=== PATIENT | male | born 1935 ===

== ENCOUNTER 2019-08-24 14:13 | Inpatient (IN) | payer MEDICARE, OTHER ==
[2019-08-24 18:32] VITALS: BP 101/61
[2019-08-24] MEDS ORDERED: Non-Formulary Item 1 EA (Temazepam [Restoril] 30 MG) PO PRN (19:41)
[2019-08-24] MEDS ORDERED: GLUCAGON HCl 1 MG KIT IM PRN (19:44)
[2019-08-24] MEDS ORDERED: Non-Formulary Item 1 EA (Cetirizine Hcl [Cetirizine Hcl] 10 MG) PO SCH (21:00)
[2019-08-24] MEDS: Insulin Glargine 100 units/ml 10ml Vial SUBQ SCH (21:01)
[2019-08-24] MEDS: INSULIN LISPRO SLIDING SCALE 100 UNITS/ML UNIT SUBQ SCH (21:01)
--- NOTE | 2019-08-24 21:33 | History & Physical ---
ADMIT DATE: 08/24/2019 PATIENT IDENTIFICATION: An 83-year-old male. REQUESTING PHYSICIAN: Dr. Cardenas. CHIEF COMPLAINT: "I need my insulin." HISTORY OF PRESENT ILLNESS: An 83-year-old male who was transferred from [place] from [place] to [facility] for psychiatric treatment after the patient presented to [facility] Emergency Room for danger to himself. The patient was also noted to have pneumonia, for that he got treated. The patient has a complex medical history and I have been asked to manage the patient's medical problem. PAST MEDICAL HISTORY: Remarkable for: 1. Diabetes. 2. Hypertension. 3. Chronic atrial fibrillation. 4. Degenerative joint disease. 5. Hypothyroidism. 6. Benign prostatic hypertrophy. 7. Glaucoma. 8. Gastroesophageal reflux disease. 9. Gout. 10. History of pacemaker placement. 11. History of long-term anticoagulation therapy. PAST SURGICAL HISTORY: Remarkable for pacemaker placement along with total knee replacement. MEDICATIONS: At the time of transfer has been reviewed and reconciled appropriately. ALLERGIES: The patient is not allergic to medications. SOCIAL HISTORY: He lives in [place]. He has no history of smoking cigarette, alcohol, or drug use. FAMILY MEDICAL HISTORY: Remarkable for diabetes, hypertension. REVIEW OF SYSTEMS: The patient stated that he cannot raise his left upper extremity above his head. Otherwise, denies any headache, blurred vision, double vision, dysphagia, odynophagia, runny nose, stuffy nose, fever, chills, cough, chest pain, shortness of breath, palpitation, dizziness, nausea, vomiting, diarrhea, dysuria, hematuria, hematochezia, melena. No history of any seizure or syncopal episode. PHYSICAL EXAMINATION: GENERAL: The patient is alert, awake, oriented, lying in the bed without any acute distress. VITAL SIGNS: Temperature 98.4, pulse 66, respiratory rate 18, blood pressure 101/61. HEENT: Normocephalic, atraumatic. Extraocular muscles are intact. Tongue was pink and coated. Poor dentition noted. No oral lesion, no exudate. No sinus tenderness. NECK: Supple. No JVD, no hepatojugular reflux, thyromegaly or carotid bruit. HEART: Both heart sounds are irregularly irregular. Grade 3/6 systolic murmur noted. CHEST AND LUNGS: Equal in expansion with no expiratory wheezing. Palpable pacemaker in the left subclavian area noted. ABDOMEN: Soft, no guarding, no rigidity. Bowel sounds present. No palpable mass. EXTREMITIES: No edema, no cyanosis. Peripheral pulses are +1. No calf tenderness noted. Well-healed surgical scar for total knee replacement noted. BACK: No kyphosis, no scoliosis, no costovertebral tenderness, no spinal tenderness noted. NEUROLOGIC: 1. The patient is alert, awake and oriented to time, place, person. Cranial #2, 4, 6, able to move his eyes upward, downward, medial, laterally. Cranial #7, no facial asymmetry. Cranial #8, able to hear loud words clearly. Cranial #9, no gag reflex present. Cranial #10, able to say Ah. Cranial #11, able to shrug shoulder bilaterally equally. Cranial #12, tongue is in midline. Power in upper and lower extremities 5+ and sensation to touch intact. Babinski's in both toes are going down. No cerebral sign. AVAILABLE DIAGNOSTIC DATA: Performed at [facility] in [place] has been reviewed. Total time reviewing the records approximately 15 minutes. CLINICAL IMPRESSION: 1. Insulin requiring diabetes. 2. Hypertension. 3. Hyperlipidemia. 4. Obstructive sleep apnea. 5. Coronary artery disease, status post angioplasty and stent placement. 6. Gout. 7. Degenerative joint disease. 8. Gastroesophageal reflux disease. 9. Benign prostatic hypertrophy. 10. Status post pacemaker placement for sick sinus syndrome. 11. Pneumonia, currently on antibiotic. 12. Obesity. 13. Fibromyalgia. 14. Long-term anticoagulation therapy. 15. High risk for fall. 16. Psychiatric disorder. PLAN: 1. Psychiatric disorder. Evaluation and management deferred. 2. Diabetes management with basal bolus insulin therapy. 3. Continue Synthroid for hypothyroidism. 4. Flomax for benign prostatic hypertrophy. 5. Proton pump inhibitor for gastroesophageal reflux disease. 6. Continue his glaucoma drop as prescribed by expert medical writer. 7. Monitor the blood pressure and resume antihypertensive medication. 8. Continue Xarelto with rate control for atrial fibrillation. 9. Continue to provide nutritional support, fall precautions, general nursing care. 10. As the patient is taking diuretics, we will continue the diuretics with Lasix and potassium with metolazone and we will get the followup lab as well. We will continue to follow this patient during his stay in the hospital. I sincerely thank you, Dr. Cardenas for giving me the opportunity to participate in patient of yours. JOB# [id number]
[2019-08-25] MEDS: Levothyroxine 0.1 Mg Tab PO SCH (06:55)
[2019-08-25] MEDS: INSULIN LISPRO SLIDING SCALE 100 UNITS/ML UNIT SUBQ SCH ×4 (07:02→21:38)
[2019-08-25] MEDS: Calcium Carb/Vit D 500 mg/200 U Tab PO SCH (08:33)
[2019-08-25] MEDS: Multivitamin Tab PO SCH (08:40)
[2019-08-25] MEDS ORDERED: MULTIVITAMIN PO SCH (09:00)
[2019-08-25] MEDS ORDERED: Metolazone 5 MG TAB PO SCH (09:00)
[2019-08-25] MEDS ORDERED: PHENTERMINE HCL 37.5 MG PO SCH (09:00)
[2019-08-25] MEDS ORDERED: ALFUZOSIN HCL 10 MG PO SCH (09:00)
[2019-08-25] MEDS ORDERED: CYCLOSPORINE OP SCH (09:00)
[2019-08-25] MEDS ORDERED: Potassium Chloride 20 mEq ER Tab PO SCH (09:00)
[2019-08-25] MEDS ORDERED: FEBUXOSTAT 40 MG PO SCH (09:00)
--- NOTE | 2019-08-25 14:45 | Psychiatric Evaluation ---
DATE OF SERVICE: 08/24/2019 IDENTIFYING DATA: The patient is an 83-year-old male living with his family. Information obtained by directly interviewing the patient as well as reviewing the admission papers. JUSTIFICATION OF HOSPITALIZATION: The patient is admitted on 515 as a danger to self. CHIEF COMPLAINT: "I don't understand why they have to bring me in here." HISTORY OF PRESENT ILLNESS: This is the first psychiatric hospitalization to [facility] for this patient who is reported to have been holding a gun and pointing towards the son and the patient has been taken to the hospital where the patient was placed on 5150 and admitted over here for stabilization. During the evaluation, the patient has been upset and stating that he never tried to hurt anyone and he could not fair it out why he has to be brought over here. The patient is reported to be [place] vet. Sleep and appetite prior to the hospitalization are reported to be poor. The patient is reported to have been giving different versions of the account and the patient is going to be closely monitored at this time. PAST PSYCHIATRIC HISTORY: The patient denies any prior psychiatric hospitalizations. MEDICAL HISTORY: Physical examination is requested by Dr. Virk. SUBSTANCE ABUSE HISTORY: None. PHYSICAL OR SEXUAL ABUSE HISTORY: None. SOCIAL HISTORY: The patient is living with his family. MENTAL STATUS EXAMINATION: The patient is an 83-year-old male, wheelchair bound, superficially cooperative. Eye contact is poor. Mood is noted to be irritable. Affect is constricted. Coping skills are noted to be poor. The patient is getting easily frustrated. The patient is stating that the gun thing has happened a few days ago and he could not fair it out why they had to bring him in here. The patient is alert and awake and he is fully aware that he is in the hospital and his age and the patient is able to give his phone number to his . The patient is stating that he needs to be at home rather than being here. the patient's behavior is a clear danger to self and others and the patient is going to be closely monitored. DIAGNOSES: AXIS I: Dementia and behavioral change, secondary trait. AXIS I B: Unspecified psychosis. PLAN: To closely monitor the patient and start the patient on low dose of Risperdal and followup. Once stabilized, the patient is going to be discharged to [facility] to be followed up on an outpatient basis. JOB# [id number]
[2019-08-25] MEDS: Insulin Glargine 100 units/ml 10ml Vial SUBQ SCH (21:39)
[2019-08-26] MEDS: INSULIN LISPRO SLIDING SCALE 100 UNITS/ML UNIT SUBQ SCH ×4 (07:06→21:06)
[2019-08-26] MEDS: Levothyroxine 0.1 Mg Tab PO SCH (07:06)
[2019-08-26] MEDS: Calcium Carb/Vit D 500 mg/200 U Tab PO SCH (08:58)
[2019-08-26] MEDS: Multivitamin Tab PO SCH (08:58)
[2019-08-26] MEDS: Potassium Chloride 20 mEq ER Tab PO SCH ×2 (08:59→17:01)
[2019-08-26] MEDS: Insulin Glargine 100 units/ml 10ml Vial SUBQ SCH (21:07)
--- NOTE | 2019-08-27 01:27 | Progress Notes ---
DATE: 08/26/2019 PSYCHIATRIC PROGRESS NOTE SUBJECTIVE: Staff was spoken to. The patient is interviewed. Mood is noted to be irritable. Affect is constricted. The patient is stating that he never tried to hurt anyone and he could not figure it out how he ended up in here. The patient's has been spoken to and she has been mentioning that the patient has been having difficult time in coping. The patient is reported to have been demented and the problems have been getting worse lately and the patient's is very much worried about the safety of the family if the patient were to be discharged to home without stabilization. ASSESSMENT: The patient is still impulsive. PLAN: To continue the patient with the supportive therapy and followup. JOB# [id number]
[2019-08-27] MEDS: Levothyroxine 0.1 Mg Tab PO SCH (06:42)
[2019-08-27] MEDS: INSULIN LISPRO SLIDING SCALE 100 UNITS/ML UNIT SUBQ SCH ×4 (06:42→21:03)
[2019-08-27] MEDS: Potassium Chloride 20 mEq ER Tab PO SCH ×2 (08:33→16:49)
[2019-08-27] MEDS: Calcium Carb/Vit D 500 mg/200 U Tab PO SCH (08:35)
[2019-08-27] MEDS: Multivitamin Tab PO SCH (08:35)
[2019-08-27] MEDS: Insulin Glargine 100 units/ml 10ml Vial SUBQ SCH (21:04)
--- NOTE | 2019-08-27 22:56 | Consultation ---
DATE OF CONSULTATION: 08/27/2019 REFERRING PHYSICIAN: Nicolette Cardenas M.D. TYPE OF CONSULTATION: Psychology. HISTORY OF PRESENT ILLNESS: The patient is an 83-year-old male. The following is by review of the medical record as well as by the patient's self-report. According to record review, the patient is being admitted on a 5150 as a danger to self. The patient states that he does not know why he is being hospitalized. The patient is complaining of sores bilaterally on his lower legs and is requesting treatment. Nursing staff is informed. The record indicates that the patient was taken to the hospital near where he lives due to the patient being upset and apparently pointing a gun at his son. The patient denied pointing a gun at his son. He stated that he has never done something like that. He states that the only time he ever did that was during the [place]. The patient presents as somewhat confused and did not elaborate on his relationship with his son. The patient denied any suicidal ideation or homicidal ideation, plan or intention at the time of this interview. PAST MEDICAL HISTORY: Please see history and physical by Dr. Virk. PAST PSYCHIATRIC HISTORY: Records are unavailable. Details are unknown. There are no prior psychiatric hospitalizations according to record review or by the patient's self-report. SUBSTANCE ABUSE HISTORY: The patient denied any history of alcohol, tobacco, illicit or recreational drug use. BRIEF PSYCHOSOCIAL HISTORY: The patient states that he lives with his family. He states that he is and that he is a Christian. His 's name is Becca. The patient's son's name is Anand. The patient states that he is a [place] . The patient did not give any history about his education or occupation. The patient stated no history of physical abuse. The patient did not know whether there are any current legal problems. The patient did admit he has a gun and that he accused his son of taking something. He was not specific about the accusation and denied that he pointed the gun at his son. MENTAL STATUS EXAMINATION: The patient appears to be his stated age. The patient's attitude is affable and cooperative. Eye contact is fair to poor. Mood is mildly irritable. Speech is spontaneous. The patient denied any depression. The patient states he does not know why he is being hospitalized. Affect is animated. Thought process shows to be focused on discharge. The patient's thought process also shows to be relevant and is responding reasonably to the clinical questions ; however, there is some confusion with respect to the events that brought him to the hospital and the incident concerning the 5150 admission. There also may be paranoid ideation. This needs further evaluation. The patient did go on to admit that he did have a gun, but never pointed it at anyone. The patient denied any hallucinations or delusions. The patient's behavior has been difficult to redirect at times and the patient is easily frustrated. Impulse control is poor and limited. Concentration is fair. Sensorium is alert and oriented to self and place. The patient was able to give his correct age and date of . Remote memory seems to be intact. Short term memory seems to be fair. The patient did not participate in the interpretation of proverbs. Insight is poor. Judgment is compromised. DIAGNOSTIC IMPRESSION: AXIS I: 1. Provisional diagnosis of dementia with behavioral disturbance. 2. Unspecified psychosis. AXIS II: Deferred. AXIS III: Please see H and P by Dr. Virk. PLAN: The patient has been seen by Dr. Cardenas for psychiatric evaluation and for the management of the patient's psychotropic medications. The patient was started on a low dose of Risperdal according to the attending psychiatrist. We will provide supportive psychotherapy to include reality orientation, differentiation and integration. We will provide de-escalation as well as limit setting including boundary awareness and definitions. We will provide coping strategies for phase of life issues. We will provide conflict resolution and problem solving along with brief solution focused therapy, which will include simple anger management skills to increase the patient's frustration tolerance and to improve his interaction with his son. We recommend the patient and his family consult with a psychologist on an outpatient basis or a family therapist to provide assistance with resolving the current family conflict. Thank you, Dr. Cardenas, for this consult and the opportunity to participate with you in this patient's care. JOB# [id number] ARJUN
--- NOTE | 2019-08-28 02:06 | Progress Notes ---
DATE: 08/27/2019 PSYCHIATRIC PROGRESS NOTE SUBJECTIVE: Staff was spoken to. The patient is interviewed. Mood is noted to be irritable. Affect is constricted. The patient's coping skills are noted to be extremely poor. Insight and judgment are also noted to be limited. No side effects to the medications are noted. The patient has been trying to get into the groups. The patient is still paranoid. The patient is stating that he could not figure it out that why he has to be here and then they are misconstruing his intent of holding the gun. ASSESSMENT: The patient is still paranoid and demented. PLAN: To continue the patient with the current medications and followup. JOB# [id number]
[2019-08-28] MEDS: Levothyroxine 0.1 Mg Tab PO SCH (06:47)
[2019-08-28] MEDS: INSULIN LISPRO SLIDING SCALE 100 UNITS/ML UNIT SUBQ SCH ×4 (06:48→20:42)
[2019-08-28] MEDS: Calcium Carb/Vit D 500 mg/200 U Tab PO SCH (08:31)
[2019-08-28] MEDS: Multivitamin Tab PO SCH (08:32)
[2019-08-28] MEDS: Potassium Chloride 20 mEq ER Tab PO SCH (08:32)
--- NOTE | 2019-08-28 19:28 | Progress Notes ---
DATE: 08/28/2019 SUBJECTIVE: The patient seen and examined. The patient is lying in the bed. The patient has no chest pain, short of breath, palpitation, dizziness, nausea or vomiting. OBJECTIVE: VITAL SIGNS: Temperature 98.1, pulse 94, respiratory rate 18, blood pressure 100/50. Glucoscan for last 24 hours, ranging from 168 to a maximum of 300. HEENT: No facial asymmetry. NECK: Supple, no JVD. HEART: Both heart sounds are irregularly irregular. CHEST AND LUNGS: Equal in expansion with no expiratory wheezing. ABDOMEN: Soft, no guarding, no rigidity. Bowel sounds present. No palpable mass. EXTREMITIES: No edema. CLINICAL IMPRESSION: 1. Insulin requiring diabetes. 2. Hypertension. 3. Hyperlipidemia. 4. Coronary artery disease. 5. Gout. 6. Chronic atrial fibrillation. 7. Degenerative joint disease. 8. Benign prostatic hypertrophy. 9. Degenerative joint disease. 10. Obesity. 11. Fibromyalgia. 12. Long-term anticoagulation therapy. PLAN: 1. Adjust dose of insulin. 2. Low sodium, low cholesterol diet. 3. Antihypertensive medicine. 4. Statin. 5. Medical management for coronary artery disease. 6. General nursing care. 7. Psych followup. 8. Chronic disease management. 9. Care plan reviewed and discussed with staff. JOB# [id number]
[2019-08-28] MEDS: Insulin Glargine 100 units/ml 10ml Vial SUBQ SCH (20:43)
--- NOTE | 2019-08-29 01:51 | Progress Notes ---
DATE: 08/28/2019 PSYCHIATRIC PROGRESS NOTE SUBJECTIVE: Staff was spoken to. The patient is interviewed. Mood is noted to be irritable. Affect is constricted. The patient's insight and judgment are noted to be still impaired. The patient has no clue that he has been pulling the gun on his son. The patient's has been spoken to. The patient is reporting that the son is not his own son and the patient has been not making any sense. The patient's states that it has been going on for a while. Coping skills at this time are noted to be very poor. The patient's does not want the patient to be back at home. She wants him to be placed close to her residence. ASSESSMENT: The patient is still psychotic and demented. PLAN: To continue the patient with the current medications and follow through. JOB# [id number]
[2019-08-29] MEDS: Levothyroxine 0.1 Mg Tab PO SCH (06:44)
[2019-08-29] MEDS: INSULIN LISPRO SLIDING SCALE 100 UNITS/ML UNIT SUBQ SCH ×4 (06:44→21:22)
[2019-08-29] MEDS: Calcium Carb/Vit D 500 mg/200 U Tab PO SCH (08:53)
[2019-08-29] MEDS: Multivitamin Tab PO SCH (08:53)
[2019-08-29] MEDS: Potassium Chloride 20 mEq ER Tab PO SCH (08:54)
[2019-08-29] MEDS ORDERED: Potassium Chloride 20 mEq ER Tab PO SCH (09:00)
[2019-08-29] MEDS: Therahoney Gel 42.5gm Tube TP SCH (11:28)
[2019-08-29] MEDS: Insulin Glargine 100 units/ml 10ml Vial SUBQ SCH (21:21)
--- NOTE | 2019-08-30 00:22 | Progress Notes ---
DATE: 08/29/2019 PSYCHIATRIC PROGRESS NOTE SUBJECTIVE: Staff was spoken to. The patient is interviewed. Mood is noted to be anxious and depressed. Affect is constricted. The patient's insight and judgment are noted to be still impaired. Impulse control is noted to be limited. Coping skills are noted to be limited. The patient has been stating that he has been trying his best, but the family is not willing to go away whatever he has to stay. The patient's is requesting that the patient be placed in a senior care facility because they cannot deal with this patient's paranoia and aggressive behavior such as holding the gun. ASSESSMENT: The patient is still psychotic. PLAN: To work with the foster care case manager in finding a place for this patient. JOB# [id number]
--- NOTE | 2019-08-30 03:00 | Progress Notes ---
DATE: 08/29/2019 PSYCHOLOGY PROGRESS NOTE SUBJECTIVE: The patient is seen in his room and is interviewed. Case has been discussed with the staff. The patient presents as somewhat confused and is asking questions about his hospitalization and reasons for the admission. The patient stated that he did not pull the gun on his son. However, he admits he holds the gun at home. He stated he doesn't believe his son is his own son. He presents as confused with poor reality testing. Staff indicates the patient' s was contacted by the attending psychiatrist. The information that was reviewed included a recent history about the patient's decline in his mental and emotional status and wellbeing as well as increased confusion. OBJECTIVE: Mood is irritable. Affect is constricted. Thought process shows to be confused. There is possible paranoid ideation present. This needs further evaluation. The patient denied any auditory or visual hallucinations. The patient does not recall if he has been evaluated for dementia. The patient's behavior has been withdrawn and demanding according to staff. ASSESSMENT: The patient's psychosis persists. PLAN: We provided limit setting as well as boundary awareness and definitions to assist the patient in being able to objectively comprehend the 5150 status i.e., a possible harm to others. The patient continued to seem confused. Staff reports that the patient's is looking for placement and/or wants the patient to be placed upon discharge from this hospital. This development writer provided the opportunity for the patient to verbally contract for safety, i.e., no self-harm and no harm to others. The patient was unwilling to contract for safety during this visit. We provided remotivation for the patient to become compliant and stay compliant with all aspects of his care and treatment. We provided reality differentiation and integration. We will follow up in 2-3 days to continue the present treatment if the patient is able to demonstrate the capacity to benefit from psychology services and behavioral therapy and management. JOB# [id number] ARJUN
[2019-08-30] MEDS: INSULIN LISPRO SLIDING SCALE 100 UNITS/ML UNIT SUBQ SCH ×4 (07:06→20:38)
[2019-08-30] MEDS: Levothyroxine 0.1 Mg Tab PO SCH (07:08)
[2019-08-30] MEDS: Therahoney Gel 42.5gm Tube TP SCH (08:30)
[2019-08-30] MEDS: Multivitamin Tab PO SCH (08:31)
[2019-08-30] MEDS: Potassium Chloride 20 mEq ER Tab PO SCH (08:32)
[2019-08-30] MEDS: Calcium Carb/Vit D 500 mg/200 U Tab PO SCH (08:33)
[2019-08-30] MEDS: Insulin Glargine 100 units/ml 10ml Vial SUBQ SCH (20:37)
--- NOTE | 2019-08-30 23:31 | Progress Notes ---
DATE: 08/30/2019 PSYCHIATRIC PROGRESS NOTE SUBJECTIVE: Staff was spoken to. The patient is interviewed. Mood is noted to be irritable. Affect is constricted. The patient's insight and judgment are noted to be still impaired. Impulse control is noted to be limited. The patient is still angry and upset that he has been here and is stating that he needs to go home. The patient's son has been spoken to. The patient's son and daughter to visit the patient and they are very much worried with regard to the patient being discharged to home and they are very much worried with regard to the patient's aggressive and paranoid behavior. The patient is being closely monitored at this time. The patient has been placed on 12.5 mg of the Seroquel that is going to be gradually increased to 25 mg at bedtime today and the patient is going to be closely monitored and once able to find a suitable placement, possibly the patient is going to be discharged. reliability manager is going to be made aware of it. JOB# [id number]
[2019-08-31] MEDS: Levothyroxine 0.1 Mg Tab PO SCH (06:34)
[2019-08-31] MEDS: INSULIN LISPRO SLIDING SCALE 100 UNITS/ML UNIT SUBQ SCH ×4 (06:34→20:56)
[2019-08-31] MEDS: Multivitamin Tab PO SCH (08:33)
[2019-08-31] MEDS: Calcium Carb/Vit D 500 mg/200 U Tab PO SCH (08:33)
[2019-08-31] MEDS: Therahoney Gel 42.5gm Tube TP SCH (08:33)
[2019-08-31] MEDS: Potassium Chloride 20 mEq ER Tab PO SCH (08:39)
[2019-08-31] MEDS ORDERED: INSULIN LISPRO 100 UNIT/ML VIAL SUBQ ONE (11:27)
--- NOTE | 2019-08-31 12:53 | Progress Notes ---
DATE: 08/31/2019 PSYCHIATRIC PROGRESS NOTE SUBJECTIVE: Staff was spoken to. The patient is interviewed. Mood is noted to be irritable. Affect is constricted. Insight and judgment at this time are noted to be still impaired. Impulse control is noted to be limited. The patient is stating that his family was here and he did get to see them and he is very much upset. The patient's family has been very upset with the patient, he is trying to start the violence by guns and they want him to be placed. The patient has no clue that he is going to be placed. ASSESSMENT: The patient is still paranoid. PLAN: To continue the patient with the supportive therapy. I encouraged the patient to verbalize the concerns rather than to act out. JOB# [id number]
[2019-08-31] MEDS: Insulin Glargine 100 units/ml 10ml Vial SUBQ SCH (20:55)
[2019-09-01] MEDS: Levothyroxine 0.1 Mg Tab PO SCH (06:37)
[2019-09-01] MEDS: INSULIN LISPRO SLIDING SCALE 100 UNITS/ML UNIT SUBQ SCH ×4 (07:11→20:49)
[2019-09-01] MEDS: Multivitamin Tab PO SCH (08:44)
[2019-09-01] MEDS: Calcium Carb/Vit D 500 mg/200 U Tab PO SCH (08:44)
[2019-09-01] MEDS: Potassium Chloride 20 mEq ER Tab PO SCH (08:45)
[2019-09-01] MEDS: Therahoney Gel 42.5gm Tube TP SCH (08:53)
--- NOTE | 2019-09-01 12:41 | Progress Notes ---
DATE: 09/01/2019 PSYCHIATRIC PROGRESS NOTE SUBJECTIVE: Staff was spoken to. The patient is interviewed. Mood is noted to be irritable. Affect is constricted. The patient is isolative and withdrawn. The patient is stating that he could not it out why the family has been reluctant to come and then visit him. The patient has no insight into his illness. The patient is getting easily frustrated and has been very paranoid and is giving an excuse that he wanted to clean the guns out that is the reason why he had a gun in his pocket. The patient's family is very much worried with regard to the patient's behavior and they want the patient to be placed rather than sending him home. JOB# [id number]
[2019-09-01] MEDS: Insulin Glargine 100 units/ml 10ml Vial SUBQ SCH (20:49)
--- NOTE | 2019-09-01 22:51 | Progress Notes ---
DATE: 08/31/2019 PSYCHOLOGY PROGRESS NOTE SUBJECTIVE: The patient is seen in his room and interviewed. Case is discussed with staff. The patient presents as irritable and frustrated. The patient continued to deny that he started any violence in the family by pointing a gun at his son. Staff reports the patient's family has been here to visit him and have requested for him to be placed and not to return home. The the patient is unaware of this. Staff reports the patient continues to be difficult with respect to compliance with his care and treatment. OBJECTIVE: Mood is irritable. Affect is constricted. Thought process shows to be confused along with paranoid ideation. The patient denied any auditory or visual hallucinations. The patient's behavior has been difficult to redirect and requires multiple attempts for the patient to be compliant with the medication and his care and treatment plan. ASSESSMENT: The patient's paranoia, poor impulse control, and care refusal persist. PLAN: We provided remotivation for the patient to become compliant and stay compliant with all aspects of his care and treatment. We provided reality testing. We provided reality differentiation and integration. We encouraged the patient to verbally contract for safety, i.e., no self-harm and no harm to others. The patient was unable or unwilling to verbally contract for safety. We encouraged the patient to verbalize his concerns versus acting out. We provided coping strategies for phase of life issues as well. We will follow up in 2-3 days to continue the present treatment if the patient remains on the unit and is willing and capable of participating and benefitting from psychology services. [facility]# [id number] ARJUN
[2019-09-02] MEDS: Levothyroxine 0.1 Mg Tab PO SCH (06:51)
[2019-09-02] MEDS: INSULIN LISPRO SLIDING SCALE 100 UNITS/ML UNIT SUBQ SCH ×4 (06:56→21:05)
[2019-09-02] MEDS: Multivitamin Tab PO SCH (08:33)
[2019-09-02] MEDS: Calcium Carb/Vit D 500 mg/200 U Tab PO SCH (08:34)
[2019-09-02] MEDS: Potassium Chloride 20 mEq ER Tab PO SCH (08:38)
[2019-09-02] MEDS: Therahoney Gel 42.5gm Tube TP SCH (10:00)
--- NOTE | 2019-09-02 14:03 | Progress Notes ---
DATE: 09/02/2019 PSYCHIATRIC PROGRESS NOTE SUBJECTIVE: Staff was spoken to. The patient is interviewed. Mood is noted to be irritable. Affect is constricted. The patient's insight and judgment are noted to be still impaired. Impulse control is noted to be limited. Coping skills are noted to be continued. The patient has been having difficult time to cope with the stress. The patient is stating that he has been looking to get out of here and go to his place, but none of the family has been responding to his calls. The patient has been frustrated. The patient is still angry at his son. The patient, however, has been downplaying his account of holding a gun and threatening to hurt them. ASSESSMENT: The patient is still psychotic. PLAN: To continue the patient with the supportive therapy and followup. JOB# [id number]
[2019-09-02] MEDS: Insulin Glargine 100 units/ml 10ml Vial SUBQ SCH (20:59)
[2019-09-03] MEDS: INSULIN LISPRO SLIDING SCALE 100 UNITS/ML UNIT SUBQ SCH ×4 (06:44→21:44)
[2019-09-03] MEDS: Levothyroxine 0.1 Mg Tab PO SCH (06:44)
[2019-09-03] MEDS: Multivitamin Tab PO SCH (08:50)
[2019-09-03] MEDS: Therahoney Gel 42.5gm Tube TP SCH (08:50)
[2019-09-03] MEDS: Potassium Chloride 20 mEq ER Tab PO SCH (08:50)
[2019-09-03] MEDS: Calcium Carb/Vit D 500 mg/200 U Tab PO SCH (08:50)
[2019-09-03] MEDS: Insulin Glargine 100 units/ml 10ml Vial SUBQ SCH (21:43)
--- NOTE | 2019-09-04 00:18 | Progress Notes ---
DATE: 09/03/2019 PSYCHIATRIC PROGRESS NOTE SUBJECTIVE: Staff was spoken to. The patient is interviewed. Mood is noted to be less irritable. Affect is appropriate. Insight and judgment at this time are noted to be improving. Impulse control is noted to be fair. Case has been discussed in the treatment team meeting and we are waiting for a possible placement for this patient and it is reported that the information has been sent to different places and we are waiting for a place that is going to be accepting the patient in close to his residence and once it is available, possibly the patient is going to be discharged for followup on outpatient basis. The patient's aggressive behavior is being closely monitored at this time. JOB# [id number]
[2019-09-04] MEDS: Levothyroxine 0.1 Mg Tab PO SCH (06:43)
[2019-09-04] MEDS: INSULIN LISPRO SLIDING SCALE 100 UNITS/ML UNIT SUBQ SCH ×3 (06:44→16:55)
[2019-09-04] MEDS: Multivitamin Tab PO SCH (08:39)
[2019-09-04] MEDS: Calcium Carb/Vit D 500 mg/200 U Tab PO SCH (08:39)
[2019-09-04] MEDS: Potassium Chloride 20 mEq ER Tab PO SCH (08:42)
[2019-09-04] MEDS: Therahoney Gel 42.5gm Tube TP SCH (09:00)
--- NOTE | 2019-09-04 10:55 | Discharge Summary ---
DATE OF DISCHARGE: 09/04/2019 IDENTIFYING DATA: The patient is an 83-year-old male living with his family. JUSTIFICATION OF HOSPITALIZATION: The patient is admitted on 5150 as a danger to self. CHIEF COMPLAINT: "I don't understand why they have to bring me in here." DIAGNOSES: [place] I: A: Dementia and behavioral change secondary to be dementia. 1B: Unspecified psychosis. AXIS II: None. AXIS III: As per Dr. Virk. HOSPITAL COURSE AND RESPONSE TO TREATMENT: The patient has been observed for a detailed history, please refer to the 08/24/2019 dictation done by me. HOSPITAL COURSE AND RESPONSE TO TREATMENT: The patient had the physical examination done by Dr. Pérez and is noted to be within normal limits. Blood work done at the hospitalization also has been reviewed. The patient has been continued with routine p.r.n. medications and the patient has been started with Seroquel that was given at 25 mg at bedtime for the paranoia and the patient has been closely monitored and patient's aggressive behavior and paranoia started to come down and the patient's threats to harm anyone else has come down, but the patient's family wanted the patient to be placed in a nursing home facility in view of his aggressive behavior and hence the patient has been discharged and the patient is going to be placed in a nursing home facility close to where the family is. DIAGNOSES AT THE TIME OF DISCHARGE: [place] I: A. Psychotic disorder, not otherwise specified. 1B: Dementia and behavioral change secondary to it. AFTERCARE PLAN: The patient is discharged for followup in the nursing home facility. [facility]# [id number]
== END 2019-09-04 17:43 | DRG 884 ==
LOC: GERO 17:54
PROVIDERS: ADMIT Psychiatry & Neurology Psychiatry; ATTEND Psychiatry & Neurology Psychiatry
DX: F03.91 Unspecified dementia, unspecified severity, with behavioral disturbance (principal); J18.9 Pneumonia, unspecified organism; I48.20 Chronic atrial fibrillation, unspecified; G47.33 Obstructive sleep apnea (adult) (pediatric); M19.90 Unspecified osteoarthritis, unspecified site; I10 Essential (primary) hypertension; E11.9 Type 2 diabetes mellitus without complications; E78.5 Hyperlipidemia, unspecified; K21.9 Gastro-esophageal reflux disease without esophagitis; N40.0 Benign prostatic hyperplasia without lower urinary tract symptoms; M79.7 Fibromyalgia; H40.9 Unspecified glaucoma; I25.10 Atherosclerotic heart disease of native coronary artery without angina pectoris; E66.01 Morbid (severe) obesity due to excess calories; M10.9 Gout, unspecified; I49.5 Sick sinus syndrome; Z82.49 Family history of ischemic heart disease and other diseases of the circulatory system; Z83.3 Family history of diabetes mellitus; Z95.0 Presence of cardiac pacemaker; Z79.01 Long term (current) use of anticoagulants; Z68.26 Body mass index [BMI] 26.0-26.9, adult; Z79.84 Long term (current) use of oral hypoglycemic drugs
CPT/HCPCS: 82948-90; 83036-90; 90899; 97530; G0410; J1815; X3904; Z7610